=== PATIENT | male | born 1970 | race African-American/Black ===

== ENCOUNTER 2018-12-16 12:21 | Emergency (ER) | payer OTHER ==
[~2018-12-16] VITALS: Ht 175.3 cm; Wt 90.7 kg
[~2018-12-16 12:21] MED LIST: CHOLESTEROL MED; FLEXERIL; HIGH B/P MED; IBUPROFEN 800800 M1 PO; LORTABELXR PO; NAPROSYN; NOHOMEMEDICATIONS; NORCO 5-325 TA1 EACH PO; NORFLEX100 MG PO; PREDNISONE50 MG PO; RELAFEN750 MG PO; ULTRAM 50MG TAB50 MG PO; ZOCOR40 MG PO
[2018-12-16 12:59] LABS: ABSOLUTE NEUTROPHILS 4.4 thou/uL (1.4-8.2); BASOPHILS 0.6 % (0.0-2.0); EOSINOPHILS 0.8 % (0.0-3.0); LYMPHOCYTES 37.8 % (24.0-44.0); MCH 30.8 pg (26.0-34.0); MCHC 34.1 g/dL (28.0-37.0); MCV 90.5 fL (80.0-100.0); MONOCYTES 8.4 % (1.0-8.0); PLATELET COUNT 227 thou/uL (150-400); POLYS 52.4 % (36.0-66.0); RBC 4.86 mil/uL (4.50-6.00); RDW 13.9 % (10.5-14.5); WBC 8.5 thou/uL (4.0-11.0)
[2018-12-16 13:02] LABS: ANION GAP 10 mmol/L (7-16); BUN 15 mg/dL (7-18); CALCIUM 9.4 mg/dL (8.5-10.1); CHLORIDE 105 mmol/L (98-107); CO2 26 mmol/L (21-32); CREATININE 1.3 mg/dL (0.7-1.3); GLUCOSE 107 mg/dL (74-106); POTASSIUM 3.7 mmol/L (3.5-5.1); SODIUM 141 mmol/L (136-145)
[2018-12-16 13:13] LABS: ALBUMIN 4.3 g/dL (3.4-5.0); LIPASE 69 U/L (73-393); SGOT 40 U/L (15-37); SGPT 61 U/L (30-65); TOTAL BILIRUBIN 0.4 mg/dL (<0.1-1.0); TOTAL PROTEIN 7.8 g/dL (6.4-8.2); TROPONIN-I <0.06 ng/mL (<0.06)
[2018-12-16] MEDS ORDERED: MOBIC7.5 MG PO (13:31)
[2018-12-16 13:56] VITALS: BP 150/101
--- NOTE | 2018-12-20 17:49 | EKG ---
[address] [place] [address] ELECTROCARDIOGRAM REPORT Name: GUIDO MAZARIEGOS Room #: [facility]#: [id number] ������������������ Admission: 12/16/18 ������������������ Attend Phys: Discharge: 12/16/18 ������������������ Date of : 66 Report #: [id number] ����������������������������������������������������������������� [id number] THIS REPORT FOR: //name// [facility] ED Test Date: 2018-12-16 Test Time: 12:26:30 Pat Name: GUIDO MAZARIEGOS Department: Room: Gender: Apparel Cutter: jlambjasonz : 1970 Requested By: Marylin Villavicencio Order Number: [id number] MD: Robles Ceja Measurements Intervals [place] Rate: 84 P: 53 [place]: 187 QRS: -37 QRSD: 154 T: 9 QT: 408 QTc: 483 Interpretive Statements Sinus rhythm Right bundle branch block Compared to ECG 04/05/2012 11:20:38 No significant change was found Electronically Signed On 12-20-2018 17:49:07 CDT by Robles Ceja [email or web address] ��������������������������������������������� <ELECTRONICALLY SIGNED> ���������������������������������������� By: Robles Ceja MD, [facility] ��������������������������������������������� 12/20/18 1749 D: [id number] 25 Robles Ceja MD, FACC /EPI
== END 2018-12-16 13:56 | disposition home or self-care (01) ==
LOC: ER 12:21
PROVIDERS: Nurse Practitioner Family
DX: R07.89 Other chest pain (principal)

== ENCOUNTER 2021-06-12 16:22 | Emergency (ER) | payer OTHER ==
[~2021-06-12] VITALS: Ht 180.3 cm; Wt 99.3 kg
[~2021-06-12 16:22] MED LIST changes: +MOBIC7.5 MG PO
[2021-06-12 17:40] LABS: ABSOLUTE NEUTROPHILS 5.3 thou/uL (1.4-8.2); BASOPHILS 0.6 % (0.0-2.0); EOSINOPHILS 0.6 % (0.0-3.0); HEMATOCRIT 46.6 % (42.0-52.0); HEMOGLOBIN 15.3 gm/dL (14.0-18.0); LYMPHOCYTES 30.8 % (24.0-44.0); MCH 30.5 pg (26.0-34.0); MCHC 32.8 g/dL (28.0-37.0); MCV 92.9 fL (80.0-100.0); MONOCYTES 6.6 % (1.0-8.0); PLATELET COUNT 249 thou/uL (150-400); POLYS 61.4 % (36.0-66.0); RBC 5.02 mil/uL (4.50-6.00); RDW 14.5 % (10.5-14.5); WBC 8.6 thou/uL (4.0-11.0)
[2021-06-12 17:55] LABS: CALCIUM 9.5 mg/dL (8.5-10.1); CREATININE 1.1 mg/dL (0.7-1.3); POTASSIUM 3.5 mmol/L (3.5-5.1)
[2021-06-12 18:06] LABS: ALBUMIN 4.3 g/dL (3.4-5.0); TOTAL BILIRUBIN 0.4 mg/dL (0.2-1.0); TOTAL PROTEIN 7.6 g/dL (6.4-8.2)
[2021-06-12 21:55] VITALS: BP 143/108
--- NOTE | 2021-06-13 08:09 | EKG ---
[place] [address] [employer] [facility] [employer] [place] [address] ELECTROCARDIOGRAM REPORT Name: GUIDO MAZARIEGOS [id number] Admission: 06/12/21 Attend Phys: Discharge: 06/12/21 Date of : 66 Report #: [id number] [facility] ED Test Date: 2021-06-12 Test Time: 16:29:37 Pat Name: GUIDO MAZARIEGOS Department: Room: Gender: Manager Social Responsibility: MARY : 1970 Requested By: Jacob Elizondo Order Number: [id number] MD: Robles Ceja Measurements Intervals [place] Rate: 76 P: 36 [place]: 190 QRS: -23 QRSD: 156 T: 2 QT: 401 QTc: 451 Interpretive Statements Sinus rhythm Consider left atrial enlargement Right bundle branch block Compared to ECG 12/16/2018 12:26:30 No significant changes Electronically Signed On 06-13-2021 8:09:24 [employer]INDRAW [employer]PERATOR by Robles Ceja [email or web address] <ELECTRONICALLY SIGNED> By: Robles Ceja MD, [facility] 06/13/21 0809 1629 1629 Robles Ceja MD, FACC /EPI
--- NOTE | 2021-06-13 08:10 | EKG ---
[place] [address] [facility] [place] [address] ELECTROCARDIOGRAM REPORT Name: GUIDO MAZARIEGOS [facility] [id number] Admission: 06/12/21 Attend Phys: Discharge: 06/12/21 Date of : 66 Report #: [id number] [facility] ED Test Date: 2021-06-12 Test Time: 17:13:31 Pat Name: GUIDO MAZARIEGOS Department: Room: Gender: Adolescent Counselor: MARY : 1970 Requested By: Jacob Elizondo Order Number: [id number] MD: Robles Ceja Measurements Intervals [place] Rate: 76 P: 39 [place]: 192 QRS: -25 QRSD: 159 T: 12 QT: 402 QTc: 453 Interpretive Statements Sinus rhythm Right bundle branch block Compared to ECG 06/12/2021 16:29:37 No significant changes Electronically Signed On 06-13-2021 8:10:01 [employer] by Robles Ceja [email or web address] <ELECTRONICALLY SIGNED> By: Robles Ceja MD, [facility] 06/13/21 0810 1713 1713 Robles Ceja MD, FACC /EPI
== END 2021-06-12 21:57 | disposition home or self-care (01) ==
LOC: ER 16:22
PROVIDERS: Student in an Organized Health Care Education/Training Program
DX: R07.89 Other chest pain (principal); E78.5 Hyperlipidemia, unspecified; Z79.899 Other long term (current) drug therapy

== ENCOUNTER → 2021-06-18 | Outpatient (CLI) | payer OTHER | LOC: CAT 12:36 | PROVIDERS: ATTEND Family Medicine | DX: Z13.6 Encounter for screening for cardiovascular disorders (principal); E78.00 Pure hypercholesterolemia, unspecified; I25.10 Atherosclerotic heart disease of native coronary artery without angina pectoris ==

== ENCOUNTER → 2021-06-29 | Outpatient (CLI) | payer OTHER | LOC: SJCVCIMAG 07:09 | PROVIDERS: ATTEND Internal Medicine | DX: I45.10 Unspecified right bundle-branch block (principal); I49.1 Atrial premature depolarization; R93.1 Abnormal findings on diagnostic imaging of heart and coronary circulation; R07.2 Precordial pain ==